=== PATIENT | female | born 1955 | race Two or more races ===

== ENCOUNTER 2018-06-06 17:06 | Outpatient (AMBR) | payer MEDICAID, SELFPAY ==
--- NOTE | 2018-06-06 18:06 | PT.ODAYNRPT ---
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
== END 2018-07-05 23:59 | disposition home or self-care (01) ==
PROVIDERS: PCP Family Medicine; Referring Provider Family Medicine; Visit Provider Orthopaedic Surgery
DX: M25.511 Pain in right shoulder (principal)
CPT/HCPCS: 97110

== ENCOUNTER 2024-05-12 18:15 | Emergency (ER) | payer OTHER, SELFPAY ==
[2024-05-12 18:55] VITALS: BP 175/77; PULSE 70; RESP 18; TEMP 37.6; O2SAT 97
--- NOTE | 2024-05-12 19:14 | PD.EDEYE ---
ED Eye Problem RME/HPI General Chief complaint: Eye Problems Stated complaint: OCCLUSION TO L TEAR DUCK GETTING WORSE Time Seen by Provider: 05/12/24 18:50 Arrival date/time: 05/12/24 18:15 Limitations: language barrier RME / HPI RME / HPI Narrative: 69-year-old female presents with redness and swelling to left inner eye duct. Patient was seen by her home security alarm installer for this concern last week and was started on oral antibiotic with minimal improvement in her symptoms. She reports applying warm compresses throughout the day with minimal improvement in symptoms. She reports increased tearing. Denies purulent discharge. Denies fever, chills, rigors, headache, visual changes, facial numbness, spreading redness. She does not recall the last date of her tetanus. Related Data Home Medications ?Medication ?Instructions ?Recorded ?Confirmed omega 5-kxi-cai-fish oil 1,000 mg 1 tab PO DAILY SUPPLEMENT #0 caps 07/11/15 11/08/17 (120 mg-180 mg) capsule (Fish Oil) tramadol 50 mg tablet (Ultram) 100 mg PO BID PRN PAIN #0 tabs 07/11/15 11/08/17 clonidine HCl 0.3 mg tablet 0.3 mg PO HS ##30 05/15/16 11/08/17 lisinopril 20 1 tab PO BID ##30 05/15/16 11/08/17 mg-hydrochlorothiazide 25 mg tablet Previous Rx's ?Medication ?Instructions ?Recorded clindamycin HCl 300 mg capsule 300 mg PO TID #21 caps 06/10/19 hydroxyzine HCl 25 mg tablet 25 mg PO TID #15 tabs 08/30/21 cephalexin 500 mg capsule 500 mg PO TID soft tissue 05/12/24 infection 10 days #30 caps doxycycline hyclate 100 mg capsule 100 mg PO QDAY soft tissue 05/12/24 infection 10 days #10 caps ibuprofen 800 mg tablet 800 mg PO Q8H PRN pain #14 tabs 05/12/24 Allergies Allergy/AdvReac Type Severity Reaction Status Date / Time ciprofloxacin Allergy Severe Rash Verified 05/12/24 18:23 latex Allergy Rash Verified 05/12/24 18:23 Review of Systems Constitutional Constitutional: Denies chills, Denies fatigue, Denies fever(s), Denies headache(s) and Denies night sweats Eyes Eyes: Denies blind spots, Denies blurry vision, Denies change in vision, Denies eye discharge and Denies other visual disturbances ENT Ears, Nose, Mouth, and Throat: Denies otalgia, Denies headache(s), Denies neck pain and Denies vertigo Cardiovascular Cardiovascular: Denies chest pain, Denies dyspnea and Denies leg edema Respiratory Respiratory: Denies cough, Denies dyspnea and Denies wheezing Gastrointestinal Gastrointestinal: Denies nausea and Denies vomiting Musculoskeletal Musculoskeletal: Denies back pain, Denies neck pain and Denies numbness Integumentary/Breasts Skin/Breast: Reports erythema, Reports lesions (Swelling left inner eyelid duct.), Denies rash and Reports skin swelling Neurologic Neurologic: Denies headache(s), Denies numbness and Denies vertigo Endocrine Endocrine: Denies fatigue Allergic/Immunologic Allergic/Immunologic: Denies wheezing Past Medical History Past Medical History NEUROLOGIC: Negative Neurological Disorders or Seizures CARDIAC: Positive Cardiac Disorders, Hypercholesterolemia and Hypertension; Negative Congestive Heart Failure RESPIRATORY: Negative Chronic Obstructive Pulmonary Disease (COPD) GASTROINTESTINAL: Negative Gastrointestinal Disorders GENITOURINARY: Negative Genitourinary Disorders or Renal Disease REPRODUCTIVE: Positive Previous Pregnancies MUSCULOSKELETAL: Positive Musculoskeletal Disorders, Arthritis and Carpal Tunnel Syndrome ENDOCRINE: Positive Endocrine Disorders and Diabetes Mellitus Type 2; Negative Diabetes Mellitus Type 1 HEMATOLOGIC: Negative Blood Disorders or Anemia OTHER HISTORY: Positive Chicken Pox and Mumps; Negative Autoimmune Disease, Blood Transfusions or Anesthesia Reactions Family History FAMILY HISTORY: Positive Family Cardiac Disorders, Family Cancer and Family Surgery; Negative Family Psychiatric Problems, Family Respiratory Disorders, Family Gastrointestinal Problems or Family Anesthesia Reaction Surgical History SURGICAL: Positive Tubal Ligation Social History SMOKING STATUS: Never smoker SUBSTANCE USE: does not use ED Exam General Limitations: Present language barrier General appearance: Present alert and in no apparent distress Head Head exam: Present atraumatic and normocephalic Eye Eye exam: Present normal appearance, PERRL and EOMI; Absent scleral icterus, nystagmus, periorbital swelling or periorbital tenderness ENT ENT exam: Present normal oropharynx and mucous membranes moist Neck Neck exam: Present normal inspection and full ROM Chest Chest inspection: Present normal inspection and symmetric chest wall rise Respiratory Respiratory exam: Present normal lung sounds bilaterally; Absent respiratory distress or wheezes Cardiovascular Cardiovascular exam: Present regular rate and +S1 Abdominal Exam Abdominal exam: Present soft; Absent distention Extremities Exam Extremities exam: Present normal inspection and full ROM Back Exam Back exam: Present normal inspection and full ROM Neurological Exam Neurological exam: Present alert Psychiatric Psychiatric exam: Present normal affect Skin Skin exam: Present warm, dry and other (Erythematous, fluctuant, approximately 1 cm circular lesion left ike BM gland without purulent discharge. Focal erythematous appearance without surrounding redness.) Course Quality Measures none Orders Category Date Time Status Ketorolac Inj [Toradol Inj] Med 05/12/24 19:13 Discontinued 30 mg IM X1 ONE Lidocaine 1% 20 ml [Xylocaine 1% 20 ML] Med 05/12/24 19:13 Discontinued 10 ml IM X1 ONE Tetanus, Diphtheria Toxoids/Pf [Tenivac-Adult] Med 05/12/24 19:13 Discontinued 0.5 ml IMI .ONCE ONE Vital Signs Vital signs: Vital Signs Temperature 99.6 F 05/12/24 18:55 Pulse Rate 70 05/12/24 18:55 Respiratory Rate 18 05/12/24 18:55 Blood Pressure 175/77 H 05/12/24 18:55 Pulse Oximetry (%) 97 05/12/24 18:55 Oxygen Delivery Method Room Air 05/12/24 18:55 Pulse ox 97% on room air, within normal limits. Procedures -ED Abscess I/D Site: face Side (if applicable): left Sedation/analgesia: none Local Anesthetic: lidocaine 1% Amount of anesthesia used (mL): 2 Technique: incised with #11 blade Amount of fluid expressed (mL): 1 Irrigation: Yes Packing used?: none Complications: other (No complication during procedure. Neurovascular intact following incision and drainage.) Eye MDM Narrative MDM Narrative:: 69-year-old female presenting for evaluation of left inner eyelid cyst. Meibomian gland cyst vs chalazion vs hordeolum. Incision and drainage performed in the ED with small amount of purulent fluid expressed from cyst. Patient tolerated the procedure well and was neurovascularly intact following. No packing was applied but patient was discharged on 2 antibiotics and plan to follow-up with primary care in the next several days for reevaluation. Patient data External records reviewed:: [facility] previous records Clinical information provided by:: patient Social determinants that could affect healthcare access:: none Patient has the following chronic illnesses:: None reported. How is presenting disease/condition affected by chronic disease/condition?: no chronic disease Evaluation data The following diagnostics were reviewed and interpreted by me:: other (specify) Lab and/or radiology exams considered but not ordered:: Considered not ordered. Interpretation Summary: Considered and ordered. Medications / Prescriptions Medications or Prescriptions considered but not ordered:: Rx given. Medication administrations:: Medication Administration History Discontinued Medications Ketorolac Tromethamine (Ketorolac Inj 60 Mg/2 Ml Vial) 30 mg IM X1 ONE Stop: 05/12/24 19:14 Last Admin: 05/12/24 19:25 Dose: 30 mg Documented By: RUKHSANA Lidocaine HCl (Lidocaine Hcl 1% 20 Ml Vial) 10 ml IM X1 ONE Stop: 05/12/24 19:14 Last Admin: 05/12/24 19:26 Dose: 10 ml Documented By: RUKHSANA Tetanus/Diphtheria Toxoids (Tetanus,Diphtheria Toxoids/Pf (Adult) 0.5 Ml Syringe) 0.5 ml IMi .ONCE ONE Stop: 05/12/24 19:14 Last Admin: 05/12/24 19:25 Dose: 0.5 ml Documented By: RUKHSANA Rx given. Consultations Consultation(s) initiated? (list below): No Diagnosis Eye Problem Differential Diagnosis: periorbital cellulitis and other (chalazion, hordeolum, Meibomian gland cyst. ) Most likely diagnosis given after review of the tests above:: meibioman gland cyst left eye. Admission Indicated Admission indicated?: not indicated Admission Request Was there a request for admission?: No Disposition Plan Disposition Plan: Discharge Discharge Attestation Discharge Attestation: The patient and all family members were given an opportunity to ask questions and understood the discharge instructions. Discharge instructions specifically effects, indications for sooner follow up or return to the emergency department, and the expected course of current diagnosis. Patient condition: Stable Discharge Plan Plan Patient Disposition: HOME (Self Care) Disposition Comment: stable Prescriptions/Referrals Prescriptions/Med Rec: New cephalexin 500 mg capsule 500 mg PO TID 10 Days Qty: 30 0RF ibuprofen 800 mg tablet 800 mg PO Q8H PRN (Reason: pain) Qty: 14 0RF doxycycline hyclate 100 mg capsule 100 mg PO QDAY 10 Days Qty: 10 0RF No Action tramadol [Ultram] 50 MG tablet 100 mg PO BID PRN (Reason: PAIN) Qty: 0 Patient Comments: FOR PAIN, NOT TO EXCEED 8 TABS IN 24 HRS omega 5-cvk-twf-fish oil [Fish Oil] 1,000 mg (120 mg-180 mg) Capsule 1 tab PO DAILY Qty: 0 clonidine HCl 0.3 MG tablet 0.3 mg PO HS Qty: 30 lisinopril-hydrochlorothiazide 20-25 mg Tablet 1 tab PO BID Qty: 30 hydroxyzine HCl 25 mg tablet 25 mg PO TID Qty: 15 0RF clindamycin HCl 300 mg capsule 300 mg PO TID Qty: 21 0RF Referrals: No Primary/Family,Physician [Primary Care Provider] - In 1 week Problem List Clinical Impression: Meibomian gland cyst Impression comment: Take Keflex 3 times daily for the next x 10 days. Take doxycycline once daily for the next x 10 days. Take ibuprofen or Tylenol as needed for pain. Watch for increasing redness, swelling, pain, and other signs of infection. Follow-up with primary care within the next week for reevaluation. Return to the ED if your symptoms worsen or change. Patient/Caregiver Discharge Instructions Other Activity Instructions:: Take Keflex 3 times daily for the next x 10 days. Take doxycycline once daily for the next x 10 days. Take ibuprofen or Tylenol as needed for pain. Watch for increasing redness, swelling, pain, and other signs of infection. Follow-up with primary care within the next week for reevaluation. Return to the ED if your symptoms worsen or change. Education Materials: ED Chalazion, ED Meibomian Gland Blockage Print Language: Luxembourgish Stand Alone Forms: Sue Award Info., Patient Portal Info Letter PA/HAND PLATE STACKER Supervising Physician PA/HAND PLATE STACKER Supervising Physician: Dr. Jones
[2024-05-12] MEDS: KETOROLAC INJ 60 MG/2 ML VIAL 30 MG IM (19:25)
[2024-05-12] MEDS: TETANUS,DIPHTHERIA TOXOIDS/PF (ADULT) 0.5 ML SYRINGE IMi (19:25)
[2024-05-12] MEDS: LIDOCAINE HCL 1% 20 ML VIAL 10 ML IM (19:26)
== END 2024-05-12 20:54 | disposition home or self-care (01) ==
PROVIDERS: Emergency Provider Emergency Medicine
DX: H00.16 Chalazion left eye, unspecified eyelid (principal); Z23 Encounter for immunization
CPT/HCPCS: 67700; 90471; 90714; 96372; 99283; J1885; J3490

== ENCOUNTER 2024-06-15 15:15 | Emergency (ER) | payer OTHER, MEDICAID, SELFPAY ==
[2024-06-15 15:22] VITALS: BP 179/75; BP 179/80; PULSE 68; RESP 18; TEMP 37.2; O2SAT 97; BMI 28.1
--- NOTE | 2024-06-15 15:38 | PD.EDSKIN ---
ED Skin Abcess FB-RME/HPI General Chief complaint: Skin/Abscess/Foreign Body Stated complaint: BUMP NEAR LT EYE SINCE YESTERDAY Time Seen by Provider: 06/15/24 15:16 Source: patient Arrival date/time: 06/15/24 15:15 69-year-old female with a history of hypertension presents to the emergency room with a chief complaint of an abscess under her left eye x 2 days Mode of arrival: ambulatory Limitations: no limitations Related Data Home Medications ?Medication ?Instructions ?Recorded ?Confirmed omega 5-jdf-lje-fish oil 1,000 mg 1 tab PO DAILY SUPPLEMENT #0 caps 07/11/15 11/08/17 (120 mg-180 mg) capsule (Fish Oil) tramadol 50 mg tablet (Ultram) 100 mg PO BID PRN PAIN #0 tabs 07/11/15 11/08/17 clonidine HCl 0.3 mg tablet 0.3 mg PO HS ##30 05/15/16 11/08/17 lisinopril 20 1 tab PO BID ##30 05/15/16 11/08/17 mg-hydrochlorothiazide 25 mg tablet Previous Rx's ?Medication ?Instructions ?Recorded clindamycin HCl 300 mg capsule 300 mg PO TID #21 caps 06/10/19 hydroxyzine HCl 25 mg tablet 25 mg PO TID #15 tabs 08/30/21 ibuprofen 800 mg tablet 800 mg PO Q8H PRN pain #14 tabs 05/12/24 clindamycin HCl 300 mg capsule 300 mg PO TID 7 days #21 caps 06/15/24 Allergies Allergy/AdvReac Type Severity Reaction Status Date / Time ciprofloxacin Allergy Severe Rash Verified 05/12/24 18:23 latex Allergy Rash Verified 05/12/24 18:23 Review of Systems Review of Systems Systems Reviewed: All systems reviewed, normal except as documented Constitutional Constitutional: Reports system reviewed and no additional complaints, except as documented, Denies fatigue, Denies fever(s), Denies headache(s) and Denies weakness Eyes Eyes: Reports system reviewed and no additional complaints, except as documented, Denies blurry vision and Denies change in vision ENT Ears, Nose, Mouth, and Throat: Reports system reviewed and no additional complaints, except as documented, Denies otalgia, Denies headache(s), Denies nasal congestion, Denies throat swelling and Denies vertigo Cardiovascular Cardiovascular: Reports system reviewed and no additional complaints, except as documented, Denies chest pain, Denies dyspnea and Denies dyspnea on exertion Respiratory Respiratory: Reports system reviewed and no additional complaints, except as documented, Denies chest congestion, Denies cough, Denies dyspnea, Denies dyspnea on exertion and Denies wheezing Gastrointestinal Gastrointestinal: Reports system reviewed and no additional complaints, except as documented, Denies abdominal pain, Denies cramping, Denies nausea and Denies vomiting Genitourinary Genitourinary: Reports system reviewed and no additional complaints, except as documented Musculoskeletal Musculoskeletal: Reports system reviewed and no additional complaints, except as documented and Denies back pain Integumentary/Breasts Skin/Breast: Reports system reviewed and no additional complaints, except as documented and Reports wounds Neurologic Neurologic: Reports system reviewed and no additional complaints, except as documented, Denies confusion, Denies headache(s), Denies lack of coordination, Denies vertigo and Denies weakness Psychiatric Psychiatric: Reports system reviewed and no additional complaints, except as documented, Denies anxiety, Denies confusion, Denies depression, Denies paranoia, Denies suicidal ideation and Denies tactile hallucinations Endocrine Endocrine: Reports system reviewed and no additional complaints, except as documented and Denies fatigue Hematologic/Lymphatic Hematologic/Lymphatic: Reports system reviewed and no additional complaints, except as documented and Denies lymphadenopathy Allergic/Immunologic Allergic/Immunologic: Reports system reviewed and no additional complaints, except as documented, Denies throat swelling, Denies urticaria and Denies wheezing Past Medical History Past Medical History NEUROLOGIC: Negative Neurological Disorders or Seizures CARDIAC: Positive Cardiac Disorders, Hypercholesterolemia and Hypertension; Negative Congestive Heart Failure RESPIRATORY: Negative Chronic Obstructive Pulmonary Disease (COPD) GASTROINTESTINAL: Negative Gastrointestinal Disorders GENITOURINARY: Negative Genitourinary Disorders or Renal Disease REPRODUCTIVE: Positive Previous Pregnancies MUSCULOSKELETAL: Positive Musculoskeletal Disorders, Arthritis and Carpal Tunnel Syndrome ENDOCRINE: Positive Endocrine Disorders and Diabetes Mellitus Type 2; Negative Diabetes Mellitus Type 1 HEMATOLOGIC: Negative Blood Disorders or Anemia OTHER HISTORY: Positive Chicken Pox and Mumps; Negative Autoimmune Disease, Blood Transfusions or Anesthesia Reactions Family History FAMILY HISTORY: Positive Family Cardiac Disorders, Family Cancer and Family Surgery; Negative Family Psychiatric Problems, Family Respiratory Disorders, Family Gastrointestinal Problems or Family Anesthesia Reaction Surgical History SURGICAL: Positive Tubal Ligation Social History SMOKING STATUS: Never smoker SUBSTANCE USE: does not use ED Exam General Limitations: Present no limitations General appearance: Present alert and in no apparent distress Head Head exam: Present atraumatic, normocephalic and normal inspection Expanded Head Exam Head image:  1. Facial erythema, swelling, pustule under the left eye. Eye Eye exam: Present normal appearance, PERRL and EOMI ENT ENT exam: Present normal exam, normal oropharynx and mucous membranes moist Neck Neck exam: Present normal inspection, full ROM and trachea midline Chest Chest inspection: Present normal inspection and symmetric chest wall rise Respiratory Respiratory exam: Present normal lung sounds bilaterally Cardiovascular Cardiovascular exam: Present regular rate, normal rhythm and normal heart sounds Abdominal Exam Abdominal exam: Present soft and normal bowel sounds Extremities Exam Extremities exam: Present normal inspection and full ROM Back Exam Back exam: Present normal inspection and full ROM Neurological Exam Neurological exam: Present alert, oriented X3 and CN II-XII intact Psychiatric Psychiatric exam: Present normal affect and normal mood Skin Skin exam: Present warm, dry, intact and normal color Course Quality Measures none Orders Category Date Time Status Incision and Drainage Set Up X1 Care 06/15/24 15:34 Active Wound Culture and Gram Stain Stat Lab 06/15/24 16:03 Received Clindamycin Vial [Cleocin vial] Med 06/15/24 16:26 Discontinued 600 mg IM X1 ONE Vital Signs Vital signs: Vital Signs Temperature 98.9 F 06/15/24 15:22 Pulse Rate 68 06/15/24 15:22 Respiratory Rate 18 06/15/24 15:22 Blood Pressure 179/75 H 06/15/24 15:22 Pulse Oximetry (%) 97 06/15/24 15:22 Oxygen Delivery Method Room Air 06/15/24 15:22 Procedures -ED Abscess I/D Site: face Side (if applicable): left Local Anesthetic: lidocaine 1% Amount of anesthesia used (mL): 4 Technique: incised with #11 blade Amount of fluid expressed (mL): 3 Irrigation: Yes Packing used?: none Skin / Abscess / Foreign Body MDM Narrative MDM Narrative:: 69-year-old female with a history of hypertension presents to the emergency room with a chief complaint of an abscess under her left eye x 2 days Patient is hemodynamically stable and in no apparent distress. There is no fever no tachycardia no tachypnea. Physical examination shows a soft tissue abscess under the left eye. There are no problems or complications with the patient's vision. Patient states she has had this problem before a month ago and an incision with drainage was completed which improved her symptoms. Patient was educated to follow-up with her primary care provider and states she was sent to an continuous mining machine coal miner which told her there is nothing for him to do. The patient was educated to follow-up with her primary care provider after this I&D antibiotics are sent to the patient's pharmacy. A wound culture of the abscess was sent out to the lab. PROCEDURE: incision and drainage of abscess PROCEDURE: A timeout protocol was performed prior to initiating the procedure. The area was prepared with Betadine and draped in the usual, sterile manner. The site was anesthetized with 1% lidocaine. A linear incision along the local skin lines was made and the purulent material expressed. The abscess was explored thoroughly and sequestered pockets were opened. Bleeding was minimal. Packing: none Followup: The patient tolerated the procedure well without complications. Standard post-procedure care is explained and patient was educated to follow-up with his primary care provider in the next 24 to 48 hours or return to the emergency room for any evidence of worsening signs or symptoms. Patient data External records reviewed:: [facility] previous records Clinical information provided by:: patient Social determinants that could affect healthcare access:: none Patient has the following chronic illnesses:: Hypertension How is presenting disease/condition affected by chronic disease/condition?: uneffected by Evaluation data The following diagnostics were reviewed and interpreted by me:: lab results and radiology exam(s) Lab and/or radiology exams considered but not ordered:: Labs radiology exams considered and ordered Interpretation Summary: N/A Medications / Prescriptions Medications or Prescriptions considered but not ordered:: Rx given Medication administrations:: Medication Administration History Discontinued Medications Clindamycin Phosphate (Clindamycin Phos Inj 150 Mg/Ml Vial 6 Ml) 600 mg IM X1 ONE Stop: 06/15/24 16:27 Rx given Consultations Consultation(s) initiated? (list below): No Diagnosis Skin/Abscess Differential Diagnosis: abscess of skin or subcutaneous tissue and other (meibomina cyst/stye) Most likely diagnosis given after review of the tests above:: Abscess of skin and subcutaneous tissue Admission Indicated Admission indicated?: not indicated Admission Request Was there a request for admission?: No Disposition Plan Disposition Plan: Discharge Discharge Attestation Discharge Attestation: The patient and all family members were given an opportunity to ask questions and understood the discharge instructions. Discharge instructions specifically effects, indications for sooner follow up or return to the emergency department, and the expected course of current diagnosis. Patient condition: Stable Discharge Plan Plan Patient Disposition: HOME (Self Care) Discharge Disposition comment: Stable Prescriptions/Referrals Prescriptions/Med Rec: New clindamycin HCl 300 mg capsule 300 mg PO TID 7 Days Qty: 21 0RF No Action tramadol [Ultram] 50 MG tablet 100 mg PO BID PRN (Reason: PAIN) Qty: 0 Patient Comments: FOR PAIN, NOT TO EXCEED 8 TABS IN 24 HRS omega 9-uqx-bza-fish oil [Fish Oil] 1,000 mg (120 mg-180 mg) Capsule 1 tab PO DAILY Qty: 0 clonidine HCl 0.3 MG tablet 0.3 mg PO HS Qty: 30 lisinopril-hydrochlorothiazide 20-25 mg Tablet 1 tab PO BID Qty: 30 hydroxyzine HCl 25 mg tablet 25 mg PO TID Qty: 15 0RF clindamycin HCl 300 mg capsule 300 mg PO TID Qty: 21 0RF ibuprofen 800 mg tablet 800 mg PO Q8H PRN (Reason: pain) Qty: 14 0RF Referrals: El Cuadra MD [Primary Care Provider] - In 1 week Problem List Clinical Impression: Meibomian gland cyst Patient/Caregiver Discharge Instructions Education Materials: ED Meibomian Gland Blockage Additional Instructions: Por favor, consulte con mcclellan m?dico de cabecera en las pr?ximas 24 a 48 horas. Se dren? mcclellan herida y se envi? isac muestra de cultivo al laboratorio. Por favor, regrese en isac semana si luca signos y s?ntomas no rader desaparecido. Si observa cualquier signo de empeoramiento de los signos o s?ntomas, acuda a urgencias de inmediato. Print Language: Ugandan Stand Alone Forms: Sue Award Info., Patient Portal Info Letter PA/PATIENT LIAISON Supervising Physician PA/PATIENT LIAISON Supervising Physician: Dr. Garcia
[2024-06-15] MEDS: CLINDAMYCIN PHOS INJ 150 MG/ML VIAL 6 ML 600 MG IM (16:48)
[2024-06-15 16:56] VITALS: BP 179/74; PULSE 73; RESP 17; TEMP 37.2; O2SAT 98
== END 2024-06-15 16:58 | disposition home or self-care (01) ==
PROVIDERS: Emergency Provider Family Medicine; PCP Family Medicine
DX: H00.025 Hordeolum internum left lower eyelid (principal); I10 Essential (primary) hypertension
CPT/HCPCS: 10060; 87070; 87077; 87186; 87205; 96372; 99283; J0736

== ENCOUNTER 2024-08-18 07:05 | Day surgery (SDC) | payer MEDICAID, SELFPAY ==
[2024-08-15 14:21] VITALS: BMI 29.7
[2024-08-18] VITALS (9 sets, daily range): BP systolic 101–166; BP diastolic 56–81; PULSE 51–59; RESP 12–18; TEMP 36.3–36.6; O2SAT 96–99; BMI 28.7
[2024-08-18] MEDS: SODIUM CHLORIDE 0.9% 500 ML 500 ML 20 ML IV (07:55)
[2024-08-18] MEDS: fentaNYL CIT INJ 50 mCg/ML AMP 2ML (ASD USE ONLY) IVP (07:59)
[2024-08-18] MEDS: MIDAZOLAM INJ 1 MG/ML VIAL 2 ML (ASD USE ONLY) 2 MG IVP (08:01)
--- NOTE | 2024-08-18 08:17 | SUR.PHASEII ---
0817 patient into recovery with no acute distress noted, v/s stable, no complaints of pain or nausea at this time. patient repositions self for comfort. pt actively passing flatus. report received from Gloria STONE.
--- NOTE | 2024-08-18 09:03 | SUR.PHASEII ---
0850 patient ambulates to bathroom with no assistance needed to dress self. 0855 D/C instructions given to patient and spouse by Abbey RN/Certified coat joiner lockstitch. patient D/C'ed home at 0903.
== END 2024-08-18 09:03 | disposition home or self-care (01) ==
PROVIDERS: PCP Physician Assistant; Referring Provider Surgery; Visit Provider Surgery
PROC: 0DBE8ZX Excision of Large Intestine, Via Natural or Artificial Opening Endoscopic, Diagnostic (ICD-10-PCS; CPT 45380; principal; 2024-08-18 08:00)
DX: Z12.11 Encounter for screening for malignant neoplasm of colon (principal); D12.2 Benign neoplasm of ascending colon; D12.3 Benign neoplasm of transverse colon; K64.1 Second degree hemorrhoids; K57.30 Diverticulosis of large intestine without perforation or abscess without bleeding; K63.5 Polyp of colon
CPT/HCPCS: 45380; J1200; J2250; J3010; J7999

== ENCOUNTER 2024-08-20 09:52 | Emergency (ER) | payer OTHER, MEDICAID, SELFPAY ==
[2024-08-20 10:09] VITALS: BP 168/71; PULSE 88; RESP 18; TEMP 36.9; O2SAT 99; BMI 28.9
--- NOTE | 2024-08-20 10:18 | PD.EDRME ---
Rapid Medical Screening Exam RME Arrival date/time: 08/20/24 09:52 69-year-old female presents to the emergency department today with complaints of left eye drainage and an area of swelling near her left eye patient requesting to have an I&D Time Seen by Provider: 08/20/24 10:12 Vital signs: Vital Signs Temperature 98.5 F 08/20/24 10:09 Pulse Rate 88 08/20/24 10:09 Respiratory Rate 18 08/20/24 10:09 Blood Pressure 168/71 H 08/20/24 10:09 Pulse Oximetry (%) 99 08/20/24 10:09 Oxygen Delivery Method Room Air 08/20/24 10:09
--- NOTE | 2024-08-20 11:35 | PD.EDSKIN ---
ED Skin Abcess FB-RME/HPI General Stated complaint: LEFT EYE SWELLING X 3 DAYS Time Seen by Provider: 08/20/24 10:12 Source: patient Arrival date/time: 08/20/24 09:52 Mode of arrival: ambulatory Limitations: no limitations RME / HPI RME / HPI narrative: Patient is 69-year-old female who developed atraumatic swelling, pain, and redness just lateral to the left nose and medial to the right eye. She states she has had an abscess here before and had multiple incision and drainages performed in the past. She states her primary doctor referred her to an shock absorption floor layer in the past who was unable to assist with this. She has no vision changes. She has no eyelid swelling or pain. She denies any eye drainage at this time. She saw her primary care provider 4 days ago by her report. She states she was placed on antibiotic but does not recall what this is. She has no other acute complaints. Related Data Home Medications ?Medication ?Instructions ?Recorded ?Confirmed tramadol 50 mg tablet (Ultram) 100 mg PO BID PRN PAIN #0 tabs 07/11/15 08/15/24 clonidine HCl 0.3 mg tablet 0.3 mg PO HS ##30 05/15/16 08/15/24 amlodipine 10 mg tablet 10 mg PO QDAY 08/15/24 08/15/24 atenolol 50 mg tablet 50 mg PO QDAY 08/15/24 08/15/24 doxycycline hyclate 100 mg capsule 100 mg PO Q12H 08/15/24 08/15/24 famotidine 40 mg tablet 40 mg PO QDAY 08/15/24 08/15/24 valsartan 160 1 tab PO QDAY 08/15/24 08/15/24 mg-hydrochlorothiazide 12.5 mg tablet Allergies Allergy/AdvReac Type Severity Reaction Status Date / Time ciprofloxacin Allergy Severe Rash Verified 08/20/24 09:59 latex Allergy Rash Verified 08/20/24 09:59 Review of Systems Review of Systems Systems Reviewed: All systems reviewed, normal except as documented ED Exam General Limitations: Present no limitations General appearance: Present alert and in no apparent distress Head Head exam: Present atraumatic Eye Eye exam: Present normal appearance, PERRL and EOMI ENT ENT exam: Present normal exam, normal oropharynx and mucous membranes moist Neck Neck exam: Present normal inspection, full ROM and trachea midline Chest Chest inspection: Present normal inspection and symmetric chest wall rise Respiratory Respiratory exam: Present normal lung sounds bilaterally Cardiovascular Cardiovascular exam: Present regular rate, normal rhythm and normal heart sounds Abdominal Exam Abdominal exam: Present soft and normal bowel sounds Extremities Exam Extremities exam: Present normal inspection and full ROM Back Exam Back exam: Present normal inspection and full ROM Neurological Exam Neurological exam: Present alert and oriented X3 Psychiatric Psychiatric exam: Present normal affect and normal mood Skin Skin exam: Present dry and other (There is approximately 0.3 cm x 0.4 cm of erythema, edema and mild fluctuance just lateral to the nose.) Course Quality Measures none Vital Signs Vital signs: Vital Signs Temperature 98.5 F 08/20/24 10:09 Pulse Rate 88 08/20/24 10:09 Respiratory Rate 18 08/20/24 10:09 Blood Pressure 168/71 H 08/20/24 10:09 Pulse Oximetry (%) 99 08/20/24 10:09 Oxygen Delivery Method Room Air 08/20/24 10:09 Skin / Abscess / Foreign Body MDM Narrative MDM Narrative:: Patient is 69-year-old female who developed atraumatic swelling, pain, and redness just lateral to the left nose and medial to the right eye. She states she has had an abscess here before and had multiple incision and drainages performed in the past. She states her primary doctor referred her to an shock absorption floor layer in the past who was unable to assist with this. She has no vision changes. She has no eyelid swelling or pain. She denies any eye drainage at this time. She saw her primary care provider 4 days ago by her report. She states she was placed on antibiotic but does not recall what this is. She has no other acute complaints. On exam, patient has approximately 0.3 x 0.4 cm of erythema, mild fluctuance, lateral to the nose. There is no orbital involvement. There is no active drainage. Bedside ultrasound revealed a cystic like mass with very little fluid collection. Do not believe I&D is warranted at this time. I was able to place calls to 2 local dermatology offices who both take her insurance. Patient was advised to contact them to schedule follow-up appointments for definitive care. We discussed return precautions. She agrees to return as needed for new or worsening changes otherwise will follow-up with dermatology. Patient was also able to obtain the name of her antibiotic, she is taking doxycycline. She is advised to continue this. Patient data External records reviewed:: [facility] previous records Clinical information provided by:: patient Social determinants that could affect healthcare access:: none Patient has the following chronic illnesses:: Hypertension, anxiety How is presenting disease/condition affected by chronic disease/condition?: uneffected by Evaluation data The following diagnostics were reviewed and interpreted by me:: other (specify) (n/a) Lab and/or radiology exams considered but not ordered:: n/a Interpretation Summary: n/a Medications / Prescriptions Medications or Prescriptions considered but not ordered:: n/a Medication administrations:: n/a Consultations Consultation(s) initiated? (list below): No Diagnosis Skin/Abscess Differential Diagnosis: abscess of skin or subcutaneous tissue, urticaria, herpes zoster and cellulitis Most likely diagnosis given after review of the tests above:: Sebaceous cyst with cellulitis Admission Indicated Admission indicated?: not indicated Admission Request Was there a request for admission?: No Disposition Plan Disposition Plan: Discharge Discharge Attestation Discharge Attestation: The patient and all family members were given an opportunity to ask questions and understood the discharge instructions. Discharge instructions specifically effects, indications for sooner follow up or return to the emergency department, and the expected course of current diagnosis. Patient condition: Stable Discharge Plan Plan Patient Disposition: HOME (Self Care) Patient condition on transfer: Stable Prescriptions/Referrals Prescriptions/Med Rec: No Action tramadol [Ultram] 50 MG tablet 100 mg PO BID PRN (Reason: PAIN) Qty: 0 Patient Comments: FOR PAIN, NOT TO EXCEED 8 TABS IN 24 HRS clonidine HCl 0.3 MG tablet 0.3 mg PO HS Qty: 30 famotidine 40 mg tablet 40 mg PO QDAY Patient Comments: TOME 1 TABLETA POR VIA ORAL TODOS LOS CAUSEY FOR STOMACH valsartan-hydrochlorothiazide 160-12.5 mg tablet 1 tab PO QDAY Patient Comments: TOME ROSEANNE TABLETA TODOS LOS CAUSEY FOR BLOOD PRESSURE 90 DAYS amlodipine 10 mg tablet 10 mg PO QDAY Patient Comments: TOME 1 TABLETA POR V A ORAL TODOS LOS D atenolol 50 mg tablet 50 mg PO QDAY Patient Comments: TOME 1 TABLETA POR V A ORAL TODOS LOS D doxycycline hyclate 100 mg capsule 100 mg PO Q12H Patient Comments: TAKE 1 CAPSULE BY MOUTH ONCE DAILY FOR SOFT TISSUE INFECTIONS FOR 10 DAYS Referrals: Pino Hernandes PA-C [Primary Care Provider] - In 1 week Problem List Clinical Impression: Cellulitis of external nose Patient/Caregiver Discharge Instructions Education Materials: ED Abscess Antibiotic ... Additional Instructions: - Apply frequent warm compresses. - Continue your prescribed antibiotic. Please contact the following places to schedule close follow-up appointment. [facility] [address] [place], [place] [id number] [email or web address] [address] [place] [address], [id number] tel: Print Language: Frisian Stand Alone Forms: Sue Award Info., Patient Portal Info Letter
[2024-08-20 12:29] VITALS: BP 166/83; PULSE 67; RESP 17; O2SAT 98
== END 2024-08-20 12:30 | disposition home or self-care (01) ==
PROVIDERS: Emergency Provider Emergency Medicine; PCP Physician Assistant
DX: L03.211 Cellulitis of face (principal)
CPT/HCPCS: 99283

== ENCOUNTER 2024-08-23 18:33 | Emergency (ER) | payer OTHER, MEDICAID, SELFPAY ==
[2024-08-23 18:51] VITALS: BP 173/80; PULSE 64; RESP 19; TEMP 37.2; O2SAT 97; BMI 31.1
--- NOTE | 2024-08-23 19:07 | PD.EDRME ---
Rapid Medical Screening Exam RME Arrival date/time: 08/23/24 18:33 Chief Complaint: Skin/Abscess/Foreign Body Time Seen by Provider: 08/23/24 18:39 Vital signs: Vital Signs Temperature 98.9 F 08/23/24 18:51 Pulse Rate 64 08/23/24 18:51 Respiratory Rate 19 08/23/24 18:51 Blood Pressure 173/80 H 08/23/24 18:51 Pulse Oximetry (%) 97 08/23/24 18:51 Oxygen Delivery Method Room Air 08/23/24 18:51 Vital signs reviewed by provider: Yes RME Narrative: 69-year-old female who presents to the ED with a complaint of left lower medial eyelid abscess. She was seen here previously in May and again in June and had an incision and drainage performed and placed on clindamycin. She was recently seen by her primary care physician and placed on doxycycline. Her PCP referred her to an bar machine operator production who indicated that there was nothing they could do for her. She again returned here to the ED on and was referred to 2 different dermatology clinics. She states she has an appointment next Sunday at the dermatology clinic on [facility]. In the meantime she has developed worsening pain, erythema and swelling extending laterally to the lower periorbital area. She denies fever or chills. Dr. Jones and Sharrijun in to evaluate patient and will take over her care. I have greeted and performed a focused initial assessment of this patient. A comprehensive ED assessment and evaluation of the patient, analysis of all test results, and completion of the medical decision making process will be conducted by additional ED providers.
--- NOTE | 2024-08-23 19:09 | XR_ITS ---
Examination: CT maxillofacial, with contrast 2-D sagittal and coronal reconstructions. 3-D reconstructions Date and time of exam:August 23, 2024 2113 hours INDICATIONS: Facial I swelling and edema 6 days CTDI: vol (mGy):14.9 DLP: (mGycm):270 Technique: Multiple axial images maxillofacial region, 3.0 mm slice thickness, post intravenous injection 60 cc Isovue 370. 2-D sagittal coronal reconstructions. 3-D reconstructions Low dose protocols were performed. One or more of the following dose reduction techniques were used; automated exposure control, adjustment of the mA and/or KV according to patient size, use of iterative reconstruction technique. Findings: Soft tissue swelling adjacent to the left nasal bone and medial to the left optic globe No viktor soft tissue abscess No retro-orbital infection The optic globes are intact No foreign body Frontal bone frontal sinuses intact Orbital rims intact Maxilla and mandible is intact IMPRESSION: Soft tissue swelling adjacent to the medial left nasal bone and medial to the left optic globe, no definite fluid filled abscess
[2024-08-23 19:32] VITALS: BP 179/75; PULSE 88; RESP 18; O2SAT 99
[2024-08-23] MEDS: LIDOCAINE HCL 1% 20 ML VIAL 10 ML INFL (19:51)
[2024-08-23] MEDS: KETOROLAC INJ 30 MG/ML VIAL 15 MG IVP (19:51)
[2024-08-23] MEDS: MethylPREDNISolone SOD SUCC 62.5 MG/ML 2ML VIAL 125 MG IVP (19:52)
[2024-08-23] MEDS: CEFEPIME INJ 2 GM in SODIUM CHLORIDE 0.9% (Popper) 50 ML IV (19:52)
[2024-08-23] MEDS: SODIUM CHLORIDE 0.9% 1000 ML 1,000 ML 999 ML IV (19:59)
[2024-08-23 20:08] LABS: Lactate (Lactic Acid) 1.5 mMol/L (0.4-2.0)
[2024-08-23 20:11] LABS: Basophils # (Auto) 0.1 Thou/mm3 (0.0-0.2); Basophils % (Auto) 1 % (0-2.5); Eosinophils # (Auto) 0.3 Thou/mm3 (0.0-0.5); Eosinophils % (Auto) 3 % (0-10); Hematocrit 37.4 % (36.0-46.0); Hemoglobin 12.9 g/dL (12.0-16.0); Immature Granulocytes Auto 0.03 Thou/mm3 (0.00-0.00); Lymphocytes # (Auto) 2.8 Thou/mm3 (1.0-4.8); Lymphocytes % (Auto) 25 % (10-50); Mean Corpuscular HGB Conc 34.5 g/dl (31.0-37.0); Mean Corpuscular Hemoglobin 30.5 pg (25.0-35.0); Mean Corpuscular Volume 88 fL (80-100); Monocytes # (Auto) 0.6 Thou/mm3 (0.0-0.8); Monocytes % (Auto) 6 % (0-12); Neutrophils # (Auto) 7.2 Thou/mm3 (1.8-7.7); Neutrophils % (Auto) 65 % (37-80); Nucleated Red Blood Cell # 0.00 Thou/mm3 (0.00-0.00); Nucleated Red Blood Cell % 0 /100 WBC (0); Platelet Count 221 Thou/mm3 (140-440); RDW Standard Deviation 42.9 fL (36.4-46.3); Red Blood Count 4.23 Miln/mm3 (4.00-5.20); White Blood Count 11.0 Thou/mm3 (3.6-11.0)
[2024-08-23] MEDS: Vancomycin Inj 2,000 MG in SODIUM CHLORIDE 0.9% 500 ML 500 ML 150 MG IV (20:15)
[2024-08-23 20:41] LABS: Sed Rate (ESR) 38 mm/hr (0-30)
[2024-08-23 20:51] LABS: Alanine Aminotransferase < 7 U/L (10-49); Albumin, Serum 4.5 gm/dL (3.4-4.8); Albumin/Globulin Ratio 1.7 (1.2-2.2); Alkaline Phosphatase 143 U/L (46-116); Anion Gap 9 (7-16); Aspartate Amino Transferase 10 U/L (0-34); BUN/Creatinine Ratio 21 Ratio (12-20); Bilirubin,Total 0.3 mg/dL (0.3-1.2); Blood Urea Nitrogen 17 mg/dL (9-23); Calcium 10.4 mg/dL (8.3-10.6); Calcium (Corrected) 10.4 mg/dL (8.5-10.1); Carbon Dioxide 26.0 mMol/L (20.0-31.0); Chloride 105 mMol/L (98-107); Creatinine (Component) 0.8 mg/dL (0.6-1.3); Estimated Creatinine Clearance 54.1 mL/min (>60); Globulin 2.6 gm/dL (2.3-3.5); Glucose 122 mg/dL (74-106); Magnesium 1.9 mg/dL (1.6-2.6); Osmolality,Calculated 281 (275-295); Potassium 3.3 mMol/L (3.4-5.1); Procalcitonin 0.06 ng/ml (0.0-0.49); Sodium 140 mMol/L (136-145); Total Protein 7.1 gm/dL (5.7-8.2); eGFR > 60 See Note
[2024-08-23 21:00] LABS: Collection Type, Urine Clean Catch; Squamous Epithelial Cell,Urine 0 /hpf (0-5)
[2024-08-23 21:18] LABS: Bilirubin,Urine Negative (Negative); Blood,Urine Negative (Negative); Clarity,Urine Clear (Clear/Hazy); Color,Urine Colorless (Lt Yel-Yel); Culture Indicated,Urine Not Indicated; Glucose, Urine Negative (Negative); Ketones,Urine Negative (Negative); Leukocyte Esterase,Urine Negative (Negative); Nitrite,Urine Negative (Negative); PH,Urine 6.5 (5.0-7.0); Protein,Urine Negative (Neg - Trace); RBC,Urine 1 /hpf (0-3); Specific Gravity,Urine 1.007 (1.001-1.035); Urobilinogen,Urine Negative mg/dL (0.0-1.0); WBC,Urine < 1 /hpf (0-5)
[2024-08-23] MEDS: POTASSIUM CHLORIDE 10% 20 MEQ/15 ML UDC 40 MEQ PO (21:45)
[2024-08-23 21:53] VITALS: BP 148/72; PULSE 58; RESP 18; O2SAT 96
[2024-08-23 22:00] VITALS: BP 150/76; PULSE 56; RESP 18; TEMP 36.6; O2SAT 98
[2024-08-23 22:36] VITALS: BP 150/76; PULSE 62
--- NOTE | 2024-08-23 22:54 | PD.EDADDENDU ---
Emergency Room Addendum Addendum Narrative: Abscess area prep and drape aseptically Local infiltration with lidocaine 1% without EPI around the abscess 0.5 cm incision directed over the abscess Loculation freed using kae forceps Abscess squeeze out, I was able to remove it at least 2 cc of pus Iodoform packing Patient tolerated the procedure well Sterile dressing done
[2024-08-23 22:56] LABS: Bilirubin,Direct < 0.1 mg/dL (0.0-0.3); C-Reactive Protein 1.9 mg/dL (0.0-0.9)
--- NOTE | 2024-09-03 12:27 | PD.EDADDENDU ---
Emergency Room Addendum Addendum Narrative: I only did the procedure incision and drainage, patient is not mine. Dr. Jones is the one who saw he patient the patient.
== END 2024-08-23 22:55 | disposition home or self-care (01) ==
PROVIDERS: Emergency Provider Emergency Medicine; PCP Physician Assistant
DX: H00.035 Abscess of left lower eyelid (principal)
CPT/HCPCS: 67700; 36415; 70487; 80053; 81001; 82248; 83605; 83735; 84145; 85025; 85652; 86140; 87040; 96361; 96365; 96375; 99284; A4649; J0692; J1885; J2919; J3373; J3490; J7030; J7050; J7999; Q9967; A9270

== ENCOUNTER 2024-10-27 17:41 | Emergency (ER) | payer OTHER, MEDICAID, SELFPAY ==
[2024-10-27 17:47] VITALS: BP 181/77; PULSE 67; RESP 18; TEMP 36.7; O2SAT 97; BMI 28.9
--- NOTE | 2024-10-27 17:57 | EKG_ITS ---
[facility] Test Date: 2024-10-27 Pat Name: SABA OBREGON Department: Room: - Gender: Female Manager Medicaid: : 1955 Requested By: Luana Bailey Order Number: [id number] Reading MD: Luana Bailey Measurements Intervals [place] Rate: 62 P: 56 IN: 182 QRS: -16 QRSD: 106 T: 34 QT: 406 QTc: 413 Interpretive Statements SINUS RHYTHM Compared to ECG 08/30/2021 06:06:12 Sinus bradycardia no longer present /store/S0/[id number]/[id number].pdf
--- NOTE | 2024-10-27 17:57 | XR_ITS ---
Examination: PA chest single view Technique: Upright PA chest single view Date and time: October 27, 2024, 181 hrs. Indications: Chest pain today. Findings: Normal heart size Lungs are clear. The osseous structures are intact Impression: No active disease
[2024-10-27 18:24] LABS: Basophils # (Auto) 0.1 Thou/mm3 (0.0-0.2); Basophils % (Auto) 1 % (0-2.5); Eosinophils # (Auto) 0.2 Thou/mm3 (0.0-0.5); Eosinophils % (Auto) 2 % (0-10); Hematocrit 36.7 % (36.0-46.0); Hemoglobin 12.3 g/dL (12.0-16.0); Immature Granulocytes Auto 0.02 Thou/mm3 (0.00-0.00); Lymphocytes # (Auto) 2.4 Thou/mm3 (1.0-4.8); Lymphocytes % (Auto) 27 % (10-50); Mean Corpuscular HGB Conc 33.5 g/dl (31.0-37.0); Mean Corpuscular Hemoglobin 29.9 pg (25.0-35.0); Mean Corpuscular Volume 89 fL (80-100); Monocytes # (Auto) 0.6 Thou/mm3 (0.0-0.8); Monocytes % (Auto) 6 % (0-12); Neutrophils # (Auto) 5.7 Thou/mm3 (1.8-7.7); Neutrophils % (Auto) 64 % (37-80); Nucleated Red Blood Cell # 0.00 Thou/mm3 (0.00-0.00); Nucleated Red Blood Cell % 0 /100 WBC (0); Platelet Count 236 Thou/mm3 (140-440); RDW Standard Deviation 43.8 fL (36.4-46.3); Red Blood Count 4.12 Miln/mm3 (4.00-5.20); White Blood Count 9.0 Thou/mm3 (3.6-11.0)
[2024-10-27 18:38] LABS: Alanine Aminotransferase 20 U/L (10-49); Albumin, Serum 4.6 gm/dL (3.4-4.8); Albumin/Globulin Ratio 1.5 (1.2-2.2); Alkaline Phosphatase 117 U/L (46-116); Anion Gap 10 (7-16); Aspartate Amino Transferase 24 U/L (0-34); BUN/Creatinine Ratio 20 Ratio (12-20); Bilirubin,Total 0.4 mg/dL (0.3-1.2); Blood Urea Nitrogen 16 mg/dL (9-23); Calcium 10.7 mg/dL (8.3-10.6); Calcium (Corrected) 10.7 mg/dL (8.5-10.1); Carbon Dioxide 27.2 mMol/L (20.0-31.0); Chloride 103 mMol/L (98-107); Creatinine (Component) 0.8 mg/dL (0.6-1.3); Estimated Creatinine Clearance 56.7 mL/min (>60); Globulin 3.1 gm/dL (2.3-3.5); Glucose 114 mg/dL (74-106); Osmolality,Calculated 281 (275-295); Potassium 3.2 mMol/L (3.4-5.1); Sodium 140 mMol/L (136-145); Total Protein 7.7 gm/dL (5.7-8.2); Troponin I < 0.002 ng/mL (0.0-0.045); eGFR > 60 See Note
[2024-10-27 18:40] LABS: B-Type Natriuretic Peptide 46 pg/mL (0-100)
[2024-10-27 18:41] LABS: D-Dimer 274 ng/mL (<600)
[2024-10-27 20:01] LABS: Troponin I < 0.002 ng/mL (0.0-0.045)
--- NOTE | 2024-10-27 20:13 | PD.EDCHEST ---
ED Chest Pain RME/HPI General Chief Complaint: Chest Pain Stated Complaint: CHEST PAIN Time Seen by Provider: 10/27/24 17:51 Arrival date/time: 10/27/24 17:41 This is a case of 69-year-old female with history of hypertension came in in the emergency room due to chest pain on and off midsternal nonradiating sharp in character associated with mild shortness of breath but no palpitation for 2 days persistence of the symptoms this patient decided to sought consult here in the emergency room Limitations: no limitations Related Data Home Medications ?Medication ?Instructions ?Recorded ?Confirmed tramadol 50 mg tablet (Ultram) 100 mg PO BID PRN PAIN #0 tabs 07/11/15 08/15/24 clonidine HCl 0.3 mg tablet 0.3 mg PO HS ##30 05/15/16 08/15/24 amlodipine 10 mg tablet 10 mg PO QDAY 08/15/24 08/15/24 atenolol 50 mg tablet 50 mg PO QDAY 08/15/24 08/15/24 doxycycline hyclate 100 mg capsule 100 mg PO Q12H 08/15/24 08/15/24 famotidine 40 mg tablet 40 mg PO QDAY 08/15/24 08/15/24 valsartan 160 1 tab PO QDAY 08/15/24 08/15/24 mg-hydrochlorothiazide 12.5 mg tablet Previous Rx's ?Medication ?Instructions ?Recorded amoxicillin 875 mg-potassium 1 tab PO BID #20 tabs 08/23/24 clavulanate 125 mg tablet sulfamethoxazole 800 1 tab PO BID #10 tabs 08/23/24 mg-trimethoprim 160 mg tablet (Bactrim DS) Allergies Allergy/AdvReac Type Severity Reaction Status Date / Time ciprofloxacin Allergy Severe Rash Verified 08/23/24 18:38 latex Allergy Rash Verified 08/23/24 18:38 Review of Systems Review of Systems Systems Reviewed: All systems reviewed, normal except as documented Constitutional Constitutional: Reports system reviewed and no additional complaints, except as documented and Reports as per HPI Cardiovascular Cardiovascular: Reports system reviewed and no additional complaints, except as documented and Reports as per HPI Respiratory Respiratory: Reports system reviewed and no additional complaints, except as documented and Reports as per HPI Gastrointestinal Gastrointestinal: Reports system reviewed and no additional complaints, except as documented and Reports as per HPI Musculoskeletal Musculoskeletal: Reports system reviewed and no additional complaints, except as documented and Reports as per HPI Neurologic Neurologic: Reports system reviewed and no additional complaints, except as documented Past Medical History Past Medical History NEUROLOGIC: Negative Neurological Disorders or Seizures CARDIAC: Positive Hypercholesterolemia and Hypertension; Negative Cardiac Disorders or Congestive Heart Failure RESPIRATORY: Negative Chronic Obstructive Pulmonary Disease (COPD) or Asthma GASTROINTESTINAL: Positive Gastrointestinal Disorders and Gastroesophageal Reflux Disease GENITOURINARY: Positive Genitourinary Disorders and Kidney Stones (IN THE PAST); Negative Renal Disease REPRODUCTIVE: Positive Previous Pregnancies MUSCULOSKELETAL: Positive Musculoskeletal Disorders (MUSCLE SPASMS), Arthritis and Carpal Tunnel Syndrome ENDOCRINE: Negative Endocrine Disorders, Diabetes Mellitus Type 1 or Diabetes Mellitus Type 2 HEMATOLOGIC: Negative Blood Disorders, Anemia or Sickle Cell Disease OTHER HISTORY: Positive Chicken Pox and Mumps; Negative Autoimmune Disease, Falls, Blood Transfusions, Blood Transfusion Reaction, Anesthesia Reactions or Cancer Family History FAMILY HISTORY: Positive Family Cardiac Disorders, Family Cancer and Family Surgery; Negative Family Psychiatric Problems, Family Respiratory Disorders, Family Gastrointestinal Problems or Family Anesthesia Reaction Surgical History SURGICAL: Positive Tubal Ligation Social History SMOKING STATUS: Never smoker SUBSTANCE USE: does not use ED Exam General Limitations: Present no limitations General appearance: Present alert, in no apparent distress and other (Patient is awake alert oriented not in distress nontoxic looking well-hydrated well-nourished) Head Head exam: Present atraumatic, normocephalic and normal inspection Eye Eye exam: Present normal appearance, PERRL and EOMI ENT ENT exam: Present normal exam, normal oropharynx, mucous membranes moist and mucous membranes dry Neck Neck exam: Present normal inspection, full ROM and trachea midline; Absent tenderness, meningismus, lymphadenopathy or thyromegaly Chest Chest inspection: Present normal inspection and symmetric chest wall rise; Absent tenderness Respiratory Respiratory exam: Present normal lung sounds bilaterally; Absent respiratory distress, wheezes, stridor, accessory muscle use or prolonged expiratory phase Cardiovascular Cardiovascular exam: Present regular rate, normal rhythm, normal heart sounds and other (No pitting edema); Absent bradycardia, tachycardia, irregular rhythm, systolic murmur, diastolic murmur, rubs, gallop, clicks or JVD Abdominal Exam Abdominal exam: Present soft and normal bowel sounds; Absent distention, tenderness, guarding, rebound, rigidity, diminished bowel sounds, hyperactive bowel sounds, hypoactive bowel sounds or organomegaly Extremities Exam Extremities exam: Present normal inspection and full ROM Back Exam Back exam: Present normal inspection and full ROM Neurological Exam Neurological exam: Present alert, oriented X3, CN II-XII intact, normal gait, reflexes normal and other (Awake alert oriented x 4 no focal deficit GCS 15/15 steady gait motor or sensory reflex were all normal no facial droop no slurring speech memory intact motor or sensory reflex were all normal in all extremities negative Babinski); Absent motor sensory deficit Psychiatric Psychiatric exam: Present normal affect and normal mood Skin Skin exam: Present warm, dry, intact and normal color Course Quality Measures none Orders Category Date Time Status EKG (ED ONLY) *Do not use* NOW Care 10/27/24 17:58 Completed EKG (ED Only) Stat Exams 10/27/24 17:57 Draft XR chest 1V portable Stat Exams 10/27/24 17:57 Completed BNP [B-Type Natriuretic Peptide] Stat Lab 10/27/24 18:05 Completed CBC Stat Lab 10/27/24 18:05 Completed CMP [Comprehensive Metabolic Panel] Stat Lab 10/27/24 18:05 Completed D-Dimer Stat Lab 10/27/24 18:05 Completed Troponin I Stat Lab 10/27/24 18:05 Completed Troponin I Stat Lab 10/27/24 19:12 Completed Potassium Chloride [K-Dur] Med 10/27/24 18:46 Discontinued 40 meq PO X1 ONE Vital Signs Vital signs: Vital Signs Temperature 98.0 F 10/27/24 17:47 Pulse Rate 67 10/27/24 17:47 Respiratory Rate 18 10/27/24 17:47 Blood Pressure 181/77 H 10/27/24 17:47 Pulse Oximetry (%) 97 10/27/24 17:47 Oxygen Delivery Method Room Air 10/27/24 17:47 Patient is afebrile not tachycardic not tachypneic not hypoxic oxygen saturation in room air is normal patient BP was 181/77 after giving clonidine patient blood pressure showed 155/75 Chest Pain MDM Narrative MDM Narrative:: This is a case of 69-year-old female with history of hypertension came in in the emergency room due to chest pain on and off midsternal nonradiating sharp in character associated with mild shortness of breath but no palpitation for 2 days persistence of the symptoms this patient decided to sought consult here in the emergency room physical examination patient is awake alert oriented not in distress nontoxic looking vital signs stable except BP noted to be 181/77 patient denies any dizziness or headache patient is not hypoxic not tachypneic not tachycardic afebrile lungs sound is clear no crackles no rales no retraction no stridor heart normal rate regular rhythm no murmur no edema abdomen soft no guarding no rebound no rigidity no tenderness neurological exam is normal awake alert oriented x 4 no focal deficit GCS 15/15 steady gait patient blood test showed no leukocytosis no anemia no electrolyte imbalance patient potassium is 3.2 thus KCl door was given here and she was advised to follow-up with PCP to monitor her blood pressure and to repeat the potassium level in 2 days as an outpatient patient sodium is normal urinalysis is normal D-dimer is negative BNP is normal troponin 2 were also negative chest x-ray is normal no pneumonia based on my physical examination and history patient will follow-up with PCP for further evaluation and to be referred to [employer] membership sales agent at the time of exam I do not think patient is having myocardial infarction or pulmonary embolism since the blood tests were normal for any worsening symptoms recurrence persistence of symptoms or any emergent concern patient is advised to return in the emergency room immediately or call 911 Patient was discharged with comfortable condition walking with stable gait. Patient verbalized no further complains explained diagnosis and answered patient question. Patient is comfortable with the proposed management plan including the need to follow up with his/her primary care physician and any specialist if applicable Discussed patient for any urgent condition or worsening sx, He/She needed to go to emergency room immediately or call 911. Patient acknowledge the responsibility to follow up as instructed and to monitor her/his symptoms. For any persistence of the symptoms for more than 3-5 days return precaution advised. Discussed the result of the test and was given printed discharge instruction Patient data External records reviewed:: [facility] previous records Clinical information provided by:: patient Social determinants that could affect healthcare access:: none Patient has the following chronic illnesses:: None How is presenting disease/condition affected by chronic disease/condition?: no chronic disease Evaluation data The following diagnostics were reviewed and interpreted by me:: lab results, radiology exam(s) and EKG tracing(s) Lab and/or radiology exams considered but not ordered:: Reviewed Interpretation Summary: Reviewed Medications / Prescriptions Medications or Prescriptions considered but not ordered:: Given Medication administrations:: Medication Administration History Discontinued Medications Potassium Chloride (Potassium Chloride 20 Meq Tabcr) 40 meq PO X1 ONE Stop: 10/27/24 18:47 Last Admin: 10/27/24 19:04 Dose: 40 meq Documented By: CN Given Consultations Consultation(s) initiated? (list below): No Diagnosis Chest Pain Differential Diagnosis: atypical chest pain, costochondritis and chest pain Most likely diagnosis given after review of the tests above:: Chest pain of unknown etiology uncontrolled hypertension Admission Indicated Admission indicated?: not indicated Explain why admission is indicated or not indicated:: Not indicated Admission Request Was there a request for admission?: No Disposition Plan Disposition Plan: Discharge Discharge Attestation Discharge Attestation: The patient and all family members were given an opportunity to ask questions and understood the discharge instructions. Discharge instructions specifically effects, indications for sooner follow up or return to the emergency department, and the expected course of current diagnosis. Patient condition: Stable Discharge Plan Plan Patient Disposition: HOME (Self Care) Patient condition on transfer: Stable Prescriptions/Referrals Prescriptions/Med Rec: No Action tramadol [Ultram] 50 MG tablet 100 mg PO BID PRN (Reason: PAIN) Qty: 0 Patient Comments: FOR PAIN, NOT TO EXCEED 8 TABS IN 24 HRS clonidine HCl 0.3 MG tablet 0.3 mg PO HS Qty: 30 famotidine 40 mg tablet 40 mg PO QDAY Patient Comments: TOME 1 TABLETA POR VIA ORAL TODOS LOS CAUSEY FOR STOMACH valsartan-hydrochlorothiazide 160-12.5 mg tablet 1 tab PO QDAY Patient Comments: TOME ROSEANNE TABLETA TODOS LOS CAUSEY FOR BLOOD PRESSURE 90 DAYS amlodipine 10 mg tablet 10 mg PO QDAY Patient Comments: TOME 1 TABLETA POR V A ORAL TODOS LOS D atenolol 50 mg tablet 50 mg PO QDAY Patient Comments: TOME 1 TABLETA POR V A ORAL TODOS LOS D doxycycline hyclate 100 mg capsule 100 mg PO Q12H Patient Comments: TAKE 1 CAPSULE BY MOUTH ONCE DAILY FOR SOFT TISSUE INFECTIONS FOR 10 DAYS sulfamethoxazole-trimethoprim [Bactrim DS] 800-160 mg tablet 1 tab PO BID Qty: 10 0RF amoxicillin-pot clavulanate 875-125 mg tablet 1 tab PO BID Qty: 20 0RF Referrals: Pino Hernandes PA-C [Primary Care Provider] - In 1 week Problem List Clinical Impression: Chest pain of unknown etiology, Poorly-controlled hypertension Patient/Caregiver Discharge Instructions Education Materials: Hypertension Dc, ED Chest Pain, Uncertain Cause, ED High Blood Pressure ... Additional Instructions: Follow-up with your primary care physician in 2 days for reevaluation and to be referred to automobile club membership sales agent for further evaluation and treatment of chest pain and uncontrolled hypertension to monitor your blood pressure medication and for possible echocardiogram stress test and Holter monitor recurrence persistent worsening symptoms or any emergent concern call 911 or go to the nearest emergency room take your medication as directed monitor your blood pressure twice a day if your blood pressure greater than 160/100 or become symptomatic call 911 or go to the nearest emergency room Print Language: Sinhala Stand Alone Forms: Sue Award Info., Patient Portal Info Letter PA/BD SPECIAL EDUCATION TEACHER Supervising Physician PA/FRANCI Supervising Physician: Dr. Sue
[2024-10-27 21:33] VITALS: BP 163/82; PULSE 65; RESP 18; TEMP 36.7; O2SAT 97
== END 2024-10-27 21:35 | disposition home or self-care (01) ==
PROVIDERS: Nurse Practitioner Family; Emergency Provider Emergency Medicine; PCP Physician Assistant
DX: R07.89 Other chest pain (principal); I10 Essential (primary) hypertension; E78.00 Pure hypercholesterolemia, unspecified; Z88.1 Allergy status to other antibiotic agents; Z91.040 Latex allergy status
CPT/HCPCS: 36415; 71045; 80053; 83880; 84484; 85025; 85379; 93005; 99283; A9270

== ENCOUNTER 2025-01-23 15:47 | Emergency (ER) | payer OTHER, MEDICAID, SELFPAY ==
--- NOTE | 2025-01-23 17:03 | PD.EDEYE ---
ED Eye Problem RME/HPI General Chief complaint: Eye Problems Stated complaint: L EYE CYST SWOLLEN AND RED Time Seen by Provider: 01/23/25 16:13 Arrival date/time: 01/23/25 15:47 69-year-old female patient with history of meibomian cyst abscess, was seen here before multiple times for the same complaints came in for evaluation regarding worsening swelling and redness to the left lower eyelid near the nasal area, was noticed since yesterday. Seen by PCP, and was started on Augmentin. Patient denies any fever. Denies any blurry vision. Patient was seen by ENT and scheduled for definitive surgery this coming April. Related Data Home Medications ?Medication ?Instructions ?Recorded ?Confirmed tramadol 50 mg tablet (Ultram) 100 mg PO BID PRN PAIN #0 tabs 07/11/15 08/15/24 clonidine HCl 0.3 mg tablet 0.3 mg PO HS ##30 05/15/16 08/15/24 amlodipine 10 mg tablet 10 mg PO QDAY 08/15/24 08/15/24 atenolol 50 mg tablet 50 mg PO QDAY 08/15/24 08/15/24 doxycycline hyclate 100 mg capsule 100 mg PO Q12H 08/15/24 08/15/24 famotidine 40 mg tablet 40 mg PO QDAY 08/15/24 08/15/24 valsartan 160 1 tab PO QDAY 08/15/24 08/15/24 mg-hydrochlorothiazide 12.5 mg tablet Previous Rx's ?Medication ?Instructions ?Recorded amoxicillin 875 mg-potassium 1 tab PO BID #20 tabs 08/23/24 clavulanate 125 mg tablet sulfamethoxazole 800 1 tab PO BID #10 tabs 08/23/24 mg-trimethoprim 160 mg tablet (Bactrim DS) Allergies Allergy/AdvReac Type Severity Reaction Status Date / Time ciprofloxacin Allergy Severe Rash Verified 01/23/25 15:49 latex Allergy Rash Verified 01/23/25 15:49 Review of Systems Review of Systems Narrative Review of Systems: Review of system reviewed and within normal limits except mentioned in HPI ED Exam Narrative Physical exam: VITAL SIGNS: Reviewed. GENERAL APPEARANCE: Alert and interactive, follows commands, no acute distress, HEAD AND FACE: Non-traumatic. ENT: PERRL, pink conjunctivitis, eyelid no trauma, + 1 x 1 cm swelling, redness, left lower eyelid, near the angle of the eye medial aspect, with tenderness fluctuant, mucous membrane moist. NECK: Supple, nontender, no nuchal rigidity. CHEST: No tenderness, no crepitus, no paradoxical movement, no retractions. LUNGS: Clear, well ventilated, symmetric, no rales, no wheezing, no ronchi, no stridor, good breath sounds bilaterally. HEART: Regular rate, regular rhythm, no murmur, no gallops. ABDOMEN: Soft, positive bowel sounds, nondistended, no guarding, nontender, no rebound, no masses, RECTAL: Deferred. GENITAL: Deferred. NEUROLOGICAL: Gross motor function intact sensory function intact, Appropriate for age. MUSCULOSKELETAL: low back nontender, full range of motion. EXTREMITIES: Nontender, full range of motion. SKIN: Color pink, dry, no rash, no lacerations, no abrasions, no contusions. LYMPHATICS: Deferred. Course Quality Measures none PROCEDURES: Abscess I/D Site: face Sedation/analgesia: none Local Anesthetic: other anesthetic (None) Technique: needle aspiration Amount of fluid expressed (mL): 1 Irrigation: No Packing used?: none Complications: other (None) Eye MDM Narrative MDM Narrative:: 69-year-old female patient with history of meibomian cyst abscess, was seen here before multiple times for the same complaints came in for evaluation regarding worsening swelling and redness to the left lower eyelid near the nasal area, was noticed since yesterday. Seen by PCP, and was started on Augmentin. Patient denies any fever. Denies any blurry vision. Patient was seen by ENT and scheduled for definitive surgery this coming April. Incision and drainage was done by me using a gauge needle. Patient tolerated procedure well see procedure notes patient was advised to continue taking Augmentin and follow-up with ENT to reschedule the possible surgery sooner. Patient agrees with plan Patient stable for charged home Patient data External records reviewed:: None Clinical information provided by:: patient Social determinants that could affect healthcare access:: none Patient has the following chronic illnesses:: Hypertension How is presenting disease/condition affected by chronic disease/condition?: uneffected by Evaluation data The following diagnostics were reviewed and interpreted by me:: other (specify) Lab and/or radiology exams considered but not ordered:: None Interpretation Summary: None Medications / Prescriptions Medications or Prescriptions considered but not ordered:: None Medication administrations:: None Consultations Consultation(s) initiated? (list below): No Diagnosis Eye Problem Differential Diagnosis: conjunctivitis and corneal ulcer (meibomian cyst abscess) Most likely diagnosis given after review of the tests above:: meibomian cyst abscess Admission Indicated Admission indicated?: not indicated Admission Request Was there a request for admission?: No Disposition Plan Disposition Plan: Discharge Discharge Attestation Discharge Attestation: The patient and all family members were given an opportunity to ask questions and understood the discharge instructions. Discharge instructions specifically effects, indications for sooner follow up or return to the emergency department, and the expected course of current diagnosis. Patient condition: Stable Discharge Plan Plan Patient Disposition: HOME (Self Care) Discharge Disposition comment: stable Prescriptions/Referrals Prescriptions/Med Rec: No Action tramadol [Ultram] 50 MG tablet 100 mg PO BID PRN (Reason: PAIN) Qty: 0 Patient Comments: FOR PAIN, NOT TO EXCEED 8 TABS IN 24 HRS clonidine HCl 0.3 MG tablet 0.3 mg PO HS Qty: 30 famotidine 40 mg tablet 40 mg PO QDAY Patient Comments: TOME 1 TABLETA POR VIA ORAL TODOS LOS CAUSEY FOR STOMACH valsartan-hydrochlorothiazide 160-12.5 mg tablet 1 tab PO QDAY Patient Comments: TOME ROSEANNE TABLETA TODOS LOS CAUSEY FOR BLOOD PRESSURE 90 DAYS amlodipine 10 mg tablet 10 mg PO QDAY Patient Comments: TOME 1 TABLETA POR V A ORAL TODOS LOS D atenolol 50 mg tablet 50 mg PO QDAY Patient Comments: TOME 1 TABLETA POR V A ORAL TODOS LOS D doxycycline hyclate 100 mg capsule 100 mg PO Q12H Patient Comments: TAKE 1 CAPSULE BY MOUTH ONCE DAILY FOR SOFT TISSUE INFECTIONS FOR 10 DAYS sulfamethoxazole-trimethoprim [Bactrim DS] 800-160 mg tablet 1 tab PO BID Qty: 10 0RF amoxicillin-pot clavulanate 875-125 mg tablet 1 tab PO BID Qty: 20 0RF Problem List Clinical Impression: Infected meibomian cyst Patient/Caregiver Discharge Instructions Discharge Activity: activity as tolerated Additional Instructions: Thank you for the opportunity for serving you today. You are stable for discharged . You are advised to: Follow-up with your ENT in 1 to 2 days Return to ED for worsening of symptoms Increase oral fluids Take medication as prescribed by your PCP Continue applying warm compress and try to squeeze out the remaining abscess for the next few days, do it twice a day Print Language: Moldovan Stand Alone Forms: Sue Award Info., Patient Portal Info Letter PA/YOGA INSTRUCTOR Supervising Physician DARLYN/YOGA INSTRUCTOR Supervising Physician: MD Mike
[2025-01-23 17:04] VITALS: BP 156/83; PULSE 62; RESP 18; TEMP 36.6; O2SAT 96
== END 2025-01-23 18:12 | disposition home or self-care (01) ==
LOC: SERX 21:02
PROVIDERS: Emergency Provider Family Medicine
DX: H00.025 Hordeolum internum left lower eyelid (principal)
CPT/HCPCS: 10160; 99281